=== PATIENT | male | born 1980 | race Caucasian/White ===

== ENCOUNTER → 2024-01-15 | Outpatient (CLI) | payer OTHER | LOC: M EKG 15:49 | PROVIDERS: ATTEND Surgery | DX: Z01.810 Encounter for preprocedural cardiovascular examination (principal); K40.90 Unilateral inguinal hernia, without obstruction or gangrene, not specified as recurrent ==

== ENCOUNTER 2024-02-26 12:10 | Day surgery (SDC) | payer OTHER ==
[~2024-02-26] VITALS: Ht 172.7 cm; Wt 68.3 kg
[2024-02-26] MEDS: CelecoXIB 400 MG CAP PO ONE (13:06)
[2024-02-26] MEDS: LR 1,000 ML IV SCH (13:26)
[2024-02-26] MEDS ORDERED: fentaNYL 100 MCG/2 ML INJECTION As Ordered ONE (16:01)
[2024-02-26] MEDS ORDERED: MIDAZOLAM INJ 2MG/2ML VIAL As Ordered ONE (16:01)
[2024-02-26] MEDS ORDERED: ROCURONIUM BROMIDE 50MG/5ML VIAL As Ordered ONE (16:01)
[2024-02-26] MEDS ORDERED: ONDANSETRON 4MG 2ML VIAL As Ordered ONE (16:01)
[2024-02-26] MEDS ORDERED: LIDOCAINE 2% 100MG/5ML SDV (FOR ANES.) As Ordered ONE (16:01)
[2024-02-26] MEDS ORDERED: propofoL 200 MG/20 ML VIAL As Ordered ONE (16:01)
[2024-02-26] MEDS ORDERED: ACETAMINOPHEN 1000MG 100ML IV BAG As Ordered ONE (16:02)
[2024-02-26] MEDS: ceFAZolin SOD 2 GM in IV 1 EA IV ONE (16:23)
[2024-02-26] MEDS ORDERED: dexmedeTOMIDine (4MCG/ML)200MCG/50ML BTL (PRECEDEX) As Ordered ONE (16:32)
[2024-02-26] MEDS ORDERED: SUGAMMADEX SODIUM 500 MG/5 ML VIAL (BRIDION) As Ordered ONE (16:33)
[2024-02-26] MEDS ORDERED: KETOROLAC 60MG 2ML VIAL As Ordered ONE (16:33)
[2024-02-26] MEDS: LIDOCAINE 1% SDV 30ML VIAL As Ordered ONE (17:30)
[2024-02-26] MEDS ORDERED: ONDANSETRON 4MG 2ML VIAL IV PRN (17:50)
[2024-02-26] MEDS ORDERED: fentaNYL 100 MCG/2 ML INJECTION IV PRN (17:50)
[2024-02-26] MEDS: PERCOCET 5MG/325MG TAB PO PRN (18:19)
[2024-02-26] MEDS ORDERED: PERCOCET PO (18:35)
[2024-02-26] MEDS: HYDROMORPHONE HCL 0.5 MG/ 0.5 ML SYRINGE IV PRN (18:43)
[2024-02-26 19:10] VITALS: BP 130/76; TEMP 96.8; O2SAT 97
== END 2024-02-26 19:57 | disposition home or self-care (01) ==
LOC: M SDC 12:10
PROVIDERS: ATTEND Surgery
DX: K40.30 Unilateral inguinal hernia, with obstruction, without gangrene, not specified as recurrent (principal)
CPT/HCPCS: 49650; 64425; C1781; J0131; J0665; J0690; J1100; J1170; J1885; J2250; J2405; J3010; S2900